=== PATIENT | female | born 1990 | race Caucasian/White ===

== ENCOUNTER 2020-06-18 08:02 | Outpatient (RCR) | payer OTHER, SELFPAY ==
--- NOTE | 2020-06-18 08:53 | PTOPEVAL ---
Thank you for referring Shena Arreaga to [facility] [place].? The patient is scheduled to be seen for therapy? __3__x/week for 12 visits. Please review, sign, date and return this plan of care MADHAV. I agree with and certify that the following plan of care is medically necessary. Referring Physician Date Admitting Provider: Attending Provider: Harsh Frederick, PA Referring Provider: *PT Outpatient Evaluation Start: 06/18/20 08:03 Freq: Status: Active Protocol: Document 06/18/20 08:03 MICHELLE (Rec: 06/18/20 08:53 MICHELLE [id number]) Therapy Assessment Status Assessment Status Assessment Status Evaluation Evaluation Information Problem Diagnosis low back pain Subjective Information pt. reports that she began Query Text:As Reported By Patient/ working about 6 months ago in [employer]. she reports that the job consist of alot of bending, lifting and stooping. She states that since beginning the new job she has developed chronic back pain. She states that her worst pain is located in the low back and described on the left side . She reports that she does get pain that shoots down the legs. She reports that her low back pain is constant. She reports that her goal is to decrease her low back pain. 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 [employer] Activity of Daily Living Ability Independent Indoor/Home Mobility Independent Community Mobility Independent Stairs Ability Independent Functional Cognition (Planning, Shopping Independent , Taking Medications) Cooking Yes Cleaning Yes Laundry Yes Shopping Yes Driving Yes Pain Assessment Timing of Pain Assessment Timing of Pain Assessment Pre-Treatment Pain Scale Pain Scale Used Numeric (1 - 10) Self Report Pain Assessment Left Lower Back Reported Pain Level 8 Pain Description Aching Pain Frequency Continuous Lowest Pain Intensity 2 Greatest Pain Intensity 9 Pain Aggravating Factors Exercise/Activity,Lifting, Walking,Weight Bearing/
--- NOTE | 2020-06-18 09:19 | PTOPEVAL ---
Thank you for referring Shena Arreaga to [facility].? The patient is scheduled to be seen for therapy? ____x/week for ___ weeks. Please review, sign, date and return this plan of care MADHAV. I agree with and certify that the following plan of care is medically necessary. Referring Physician Date Admitting Provider: Attending Provider: Harsh Frederick, PA Referring Provider: *PT Outpatient Evaluation Start: 06/18/20 08:03 Freq: Status: Active Protocol: Document 06/18/20 08:03 MICHELLE (Rec: 06/18/20 08:53 MICHELLE [id number]) Therapy Assessment Status Assessment Status Assessment Status Evaluation Evaluation Information Problem Diagnosis low back pain Onset 11/16/19 Subjective Information pt. reports that she began Query Text:As Reported By Patient/ working about 6 months ago in [employer]. she reports that the job consist of alot of bending, lifting and stooping. She states that since beginning the new job she has developed chronic back pain. She states that her worst pain is located in the low back and described on the left side . She reports that she does get pain that shoots down the legs. She reports that her low back pain is constant. She reports that her goal is to decrease her low back pain. 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 [employer] Activity of Daily Living Ability Independent Indoor/Home Mobility Independent Community Mobility Independent Stairs Ability Independent Functional Cognition (Planning, Shopping Independent , Taking Medications) Cooking Yes Cleaning Yes Laundry Yes Shopping Yes Driving Yes Pain Assessment Timing of Pain Assessment Timing of Pain Assessment Pre-Treatment Pain Scale Pain Scale Used Numeric (1 - 10) Self Report Pain Assessment Left Lower Back Reported Pain Level 8 Pain Description Aching Pain Frequency Continuous Lowest Pain Intensity 2 Greatest Pain Intensity 9 Pain Aggravating Factors Exercise/Activity,Lifting, Walking,Weight B
== END 2020-08-13 13:05 | disposition home or self-care (01) ==
LOC: CHSPT 08:02
PROVIDERS: PCP Physician Assistant; Visit Provider Physician Assistant
DX: M54.5 Low back pain (principal)
CPT/HCPCS: 97014; 97110; 97140; 97161; G0283

== ENCOUNTER 2022-06-06 23:53 | Emergency (ER) | payer OTHER, SELFPAY ==
--- NOTE | ~2022-06-06 | XR_ITS ---
EXAMINATION: XR chest 2V 06/07/2022 01:16 INDICATION: Fever PROCEDURE: 2 view chest COMPARISON: No prior studies for comparison. FINDINGS: The lungs are clear. The cardiomediastinal silhouette is within normal limits. There are no pleural effusions. There is no pneumothorax suspected. IMPRESSION: 1: NO ACUTE CARDIOPULMONARY DISEASE. Reviewed, dictated and finalized at location A. FORMER
[2022-06-06 23:53] VITALS: BP 105/64; PULSE 118; RESP 20; TEMP 38.2; O2SAT 94
--- NOTE | 2022-06-07 00:10 | ED.FEVER ---
HPI - Fever General Chief Complaint: Fever Stated Complaint: PAIN Source: patient and RN notes reviewed Mode of arrival: ambulatory Limitations: no limitations History of Present Illness HPI Narrative: patient states she had hemorrhoidectomy performed at [facility] yesterday. Today about 2:00 p.m. just today patient began having fever chills body aches. She has pain at the rectal site where hemorrhoids removed. She states that she has been having problems with bowel movement for the last 3 days. She has been having some nausea. She denies any vomiting. MD elicited complaint: fever Onset (ago): hour(s) (8) Context: other(s) with similar symptoms Exacerbating factors: nothing Relieving factors: acetaminophen Associated symptoms: chills, myalgias and nausea Related Data Home Medications Medication Instructions Recorded Confirmed cyclobenzaprine 10 mg tablet 10 mg PO DIRECTED 06/07/22 06/07/22 diclofenac sodium 75 mg 75 mg PO DIRECTED 06/07/22 06/07/22 tablet,delayed release docusate sodium 100 mg capsule 100 mg PO DIRECTED 06/07/22 06/07/22 gabapentin 800 mg tablet 800 mg PO DIRECTED 06/07/22 06/07/22 oxycodone-acetaminophen 5 mg-325 1 tablet PO DIRECTED 06/07/22 06/07/22 mg tablet tramadol 50 mg tablet 50 mg PO DIRECTED 06/07/22 06/07/22 Allergies Allergy/AdvReac Type Severity Reaction Status Date / Time latex Allergy Unknown Verified 06/07/22 00:12 ibuprofen AdvReac Other Verified 06/07/22 00:12 Review of Systems Review of Systems: All systems reviewed & are unremarkable except as noted in HPI and below PMFSH Past Medical History Medical History (Updated 06/08/22 @ 00:00 by Paradise Lamar) Morbid obesity Surgical History Surgical History (Updated 06/07/22 @ 00:12 by Ashok Whittaker MD) S/P hemorrhoidectomy Social History Social History (Updated 06/07/22 @ 00:12 by Ashok Whittaker MD) Smoking packs per day: 0.5 Smoking cigarettes per day: 10.0 Smoking status: Current every day smoker Tobacco type: cigarettes Exam Const: General: healthy appearing, no acute distress and alert Nutritional Appearance: well nourished and obese morbidly obese Orientation/consciousness: patient oriented x3 Limitations: no limitations HENMT: Head: normal to inspection Ears: external ears normal Face/Nose/Sinus: Normal external nose present Face and sinus: normal facial exam Mouth: Yes moist mucous membranes Eyes: Conjunctivae: conjunctivae normal Pupils: Equal, round and reactive pupils present EOM: EOMs intact bilaterally Neck: Neck: normal visual inspection Resp: Effort & Inspection: normal respiratory effort Auscultation: clear to auscultation bilaterally Cardio: Rate: regular rate Rhythm: regular rhythm GI: GI Palp: Yes Soft to palpation and No Tenderness to palpation present (GI) Auscultation: normal bowel sounds Back/Spine/Pelvis: Cervical Spine: cervical ROM normal Thoracic/Lumbar Spine: thoraco-lumbar ROM normal Skin: General skin exam: normal color Rashes: no rashes Neuro: General: patient oriented x3, moves all extremities, no focal motor deficits and CN's II-XI intact bilaterally Speech: normal speech Gait exam (Neuro): Normal gait present Course Vital Signs Vital signs: Vital Signs Temperature 38.2 C H 06/06/22 23:53 Pulse Rate 118 H 06/06/22 23:53 Respiratory Rate 20 06/06/22 23:53 Blood Pressure 105/64 06/06/22 23:53 Pulse Oximetry 94 06/06/22 23:53 Oxygen Delivery Room Air 06/06/22 23:53 Temperature 38.2 C H 06/06/22 23:53 Pulse Rate 101 H 06/07/22 01:24 Respiratory Rate 20 06/07/22 01:24 Blood Pressure 115/70 06/07/22 00:16 Pulse Oximetry 96 06/07/22 01:24 Oxygen Delivery Room Air 06/07/22 01:24 MDM - Fever MDM Narrative Medical decision making narrative: I considered postoperative pneumonia, postoperative urinary tract infection, postoperative infection but it is too early w
[2022-06-07 00:16] VITALS: BP 115/70; PULSE 114; RESP 20; O2SAT 97
[2022-06-07 00:35] LABS: Basophils Absolute Auto 0.02 K/mm3 (0.00-0.10); Basophils Percent Auto 0.2 % (0.0-1.0); Eosinophils Absolute Auto 0.01 K/mm3 (0.02-0.50); Eosinophils Percent Auto 0.1 % (1.0-6.0); Hematocrit 36.6 % (35.0-49.0); Hemoglobin 12.2 g/dL (12.0-15.0); Immature Granulocyte Absolute 0.14 K/mm3 (0.00-0.00); Immature Granulocyte Percent A 1.3 % (0.0-0.0); Lymphocytes Absolute Auto 1.05 K/mm3 (1.10-4.50); Lymphocytes Percent Auto 9.9 % (18.0-42.0); Mean Corpuscular HGB Conc 33.3 g/dL (32.0-36.0); Mean Corpuscular Hemoglobin 29.8 pg (27.0-31.0); Mean Corpuscular Volume 89.5 fL (78.0-102.0); Mean Platelet Volume 8.9 fl (9.2-11.8); Monocytes Absolute Auto 0.57 K/mm3 (0.10-0.90); Monocytes Percent Auto 5.4 % (2.0-11.0); Neutrophils Absolute Auto 8.9 K/mm3 (1.7-7.2); Neutrophils Percent Auto 83.1 % (50.0-70.0); Platelet Count Result 261 K/mm3 (150-420); Red Blood Count 4.09 M/mm3 (4.20-5.40); Red Cell Distribution Width 12.4 % (11.6-14.4); White Blood Count 10.7 K/mm3 (4.8-10.8)
[2022-06-07 00:45] LABS: Alanine Aminotransferase 22 U/L (14-59); Albumin Level 3.4 g/dL (3.4-5.0); Alkaline Phosphatase 76 U/L (46-116); Anion Gap 10 mmol/L (8-16); Aspartate Amino Transferase 19 U/L (15-37); Bilirubin,Total 0.3 mg/dL (0.00-1.00); Blood Urea Nitrogen 11 mg/dL (7-18); Calcium 7.9 mg/dL (8.5-10.1); Carbon Dioxide 26 mmol/L (21-32); Chloride 101 mmol/L (98-108); Estimated CRCL calculation 115 ml/min; Estimated Glomerular Filt Rate > 60; Glucose 105 mg/dL (70-99); Influenza A QL RT-PCR Negative (Negative); Influenza B QL RT-PCR Negative (Negative); Osmolality Calculated 283 mOsm/kg (285-295); SARS-CoV-2 RNA PCR Negative (Negative); Sodium 137 mmol/L (136-145); Total Protein 6.9 g/dL (6.4-8.2)
[2022-06-07 00:55] LABS: Add Urine Microscopic? YES; Appearance Urine Clear (Clear); Bilirubin Urine Negative (Negative); Blood Urine 1+ (Negative); Color Urine Light Yellow (Yellow); Glucose Urine UA Negative (Negative); Ketones Urine Negative (Negative); Leukocyte Esterase Ur Trace LEU/UL (Negative); Nitrate Urine Negative (Negative); Protein Urine Negative (Negative); Specific Grav Ur 1.025 (1.010-1.020)
[2022-06-07 01:00] LABS: Bacteria Urine Trace /hpf; Squamous Epithelial Cell Urine Moderate /hpf (Few); WBC Urine 0-3 /hpf (0-3)
[2022-06-07 01:24] VITALS: PULSE 101; RESP 20; O2SAT 96
== END 2022-06-07 01:30 | disposition home or self-care (01) ==
PROVIDERS: Emergency Provider Emergency Medicine; PCP Physician Assistant
DX: R50.9 Fever, unspecified (principal); F17.210 Nicotine dependence, cigarettes, uncomplicated; Z79.891 Long term (current) use of opiate analgesic; Z20.822 Contact with and (suspected) exposure to COVID-19
CPT/HCPCS: 36415; 71046; 80053; 81001; 85025; 87636; 99283

== ENCOUNTER 2023-07-30 12:04 | Outpatient (CLI) | payer OTHER, SELFPAY ==
[2023-07-30 12:38] LABS: Basophils Absolute Auto 0.04 K/mm3 (0.00-0.10); Basophils Percent Auto 0.4 % (0.0-1.0); Eosinophils Absolute Auto 0.02 K/mm3 (0.02-0.50); Eosinophils Percent Auto 0.2 % (1.0-6.0); Hematocrit 42.6 % (35.0-49.0); Immature Granulocyte Absolute 0.03 K/mm3 (0.00-0.00); Immature Granulocyte Percent A 0.3 % (0.0-0.0); Lymphocytes Absolute Auto 2.39 K/mm3 (1.10-4.50); Lymphocytes Percent Auto 22.1 % (18.0-42.0); Mean Corpuscular HGB Conc 32.9 g/dL (32-36); Mean Corpuscular Hemoglobin 29.9 pg (27.0-31.0); Mean Corpuscular Volume 90.8 fL (78.0-102.0); Mean Platelet Volume 9.1 fl (9.2-11.8); Monocytes Absolute Auto 0.55 K/mm3 (0.10-0.90); Monocytes Percent Auto 5.1 % (2.0-11.0); Neutrophils Absolute Auto 7.77 K/mm3 (1.70-7.20); Neutrophils Percent Auto 71.9 % (50.0-70.0); Platelet Count Result 354 K/mm3 (150-420); Red Blood Count 4.69 M/mm3 (4.20-5.40); Red Cell Distribution Width 12.5 % (11.6-14.4); White Blood Count 10.8 K/mm3 (4.8-10.8)
[2023-07-30 13:33] LABS: Alanine Aminotransferase 19 U/L (14-59); Albumin Level 4.2 g/dL (3.4-5.0); Alkaline Phosphatase 79 U/L (46-116); Anion Gap 9 mmol/L (8-16); Aspartate Amino Transferase 17 U/L (15-37); Bilirubin,Total 0.4 mg/dL (0.00-1.00); Blood Urea Nitrogen 12 mg/dL (7-18); Calcium 9.5 mg/dL (8.5-10.1); Carbon Dioxide 30 mmol/L (21-32); Chloride 103 mmol/L (98-108); Cholesterol 238 mg/dL (0-200); Estimated Glomerular Filt Rate > 60; Glucose 90 mg/dL (70-99); HDL Direct 50 mg/dL (40-60); LDL Cholesterol Calculated 163 mg/dL (<130); Osmolality Calculated 293 mOsm/kg (285-295); Potassium 4.6 mmol/L (3.5-5.1); Sodium 142 mmol/L (136-145); Thyroid Stimulating Hormone 1.33 uIU/mL (0.36-3.74); Total Protein 7.4 g/dL (6.4-8.2); Triglycerides 126 mg/dL (0-150)
[2023-07-30 13:46] LABS: Hemoglobin A1C 5.1 % (<5.7)
== END 2023-07-30 12:05 | disposition home or self-care (01) ==
LOC: CHSLAB 12:07
PROVIDERS: PCP Physician Assistant
DX: Z79.899 Other long term (current) drug therapy (principal)
CPT/HCPCS: 36415; 80053; 80061; 83036; 84443; 85025